=== PATIENT | female | born 1940 ===

== ENCOUNTER 2023-07-28 13:11 | Outpatient (RCR) | payer MEDICARE, SELFPAY ==
[2023-07-28 13:30] VITALS: BMI 29.6
== END 2023-10-16 11:59 | disposition home or self-care (01) ==
LOC: ANHWOC 13:11
DX: C20 Malignant neoplasm of rectum (principal); Z43.3 Encounter for attention to colostomy
CPT/HCPCS: 99203; G0463

== ENCOUNTER 2024-02-15 12:00 | Outpatient (RCR) | payer MEDICARE, SELFPAY | END 2024-05-06 10:53 | disposition home or self-care (01) | LOC: ANHWOC 12:00 | DX: Z43.2 Encounter for attention to ileostomy (principal); C20 Malignant neoplasm of rectum | CPT/HCPCS: 99214; G0463 ==